=== PATIENT | male | born 1995 | race Two or more races ===

== ENCOUNTER 2022-02-26 13:44 | Emergency (ER) | payer MEDICAID, OTHER | END 2022-02-26 15:06 | disposition left against medical advice (07) | LOC: ER 13:45 | DX: H92.01 Otalgia, right ear (principal); Z53.21 Procedure and treatment not carried out due to patient leaving prior to being seen by health care provider ==

== ENCOUNTER 2023-03-09 01:30 | Emergency (ER) | payer MEDICAID ==
[~2023-03-09] VITALS: Ht 172.7 cm; Wt 187.3 kg
[2023-03-09 03:39] VITALS: BP 124/74
== END 2023-03-09 03:40 | disposition home or self-care (01) ==
LOC: ER 01:31
DX: K62.89 Other specified diseases of anus and rectum (principal); K64.8 Other hemorrhoids
CPT/HCPCS: 99282; 99284

== ENCOUNTER 2023-04-17 16:01 | Emergency (ER) | payer MEDICAID ==
[~2023-04-17] VITALS: Ht 172.7 cm; Wt 156.2 kg
[2023-04-17 16:08] VITALS: BP 140/111; PULSE 108; RESP 16; TEMP 97.8; O2SAT 96
== END 2023-04-18 02:12 | disposition left against medical advice (07) ==
LOC: ER 16:03
DX: K62.5 Hemorrhage of anus and rectum (principal); Z53.21 Procedure and treatment not carried out due to patient leaving prior to being seen by health care provider
CPT/HCPCS: 99281